=== PATIENT | male | born 1965 | race Caucasian/White ===

== ENCOUNTER 2020-07-21 06:29 | Day surgery (SDC) | payer BC ==
[2020-07-21] MEDS ORDERED: Midazolam 1 MG/ML 2 ML SDV IV ONE (06:30)
[2020-07-21] MEDS ORDERED: Propofol 200 MG/20 ML SDV IV ONE (06:30)
[2020-07-21] MEDS ORDERED: Sodium Chloride 0.9% 10 ML Syringe FLUSH PRN (06:45)
[2020-07-21] MEDS ORDERED: Lactated Ringers 1,000 ML IV SCH (06:45)
--- NOTE | 2020-07-21 08:30 | PCM.OPNOTE ---
- General Post-Op/Procedure Note Date of Surgery/Procedure: 07/21/20 Operative Procedure(s): c scope with cold loop cold forceps biopsy Findings: descending colon polyp Pre Op Diagnosis: screening Post-Op Diagnosis: descending colon polyp Anesthesia Technique: MAC Primary Surgeon: Wilfredo Burns Anesthesia Provider: Cara Navarro Pathology: descending colon polyp Complications: None Condition: Good Free Text/Narrative:: see dictation
--- NOTE | 2020-07-22 10:19 | OR ---
DATE OF OPERATION: 07/21/2020 SURGEON: Wilfredo Burns MD PROCEDURE PERFORMED: Colonoscopy with cold loop and cold forceps biopsy. PREOPERATIVE DIAGNOSIS: Colon cancer screening. POSTOPERATIVE DIAGNOSIS: Descending colon polyp. INDICATIONS FOR PROCEDURE: This is a 54-year-old white male who presents for his initial screening colonoscopy. He was offered and accepted the same. DESCRIPTION OF OPERATION: After an excellent IV sedation was administered, digital rectal exam was performed. No marked abnormality was noted. Flexible colonoscope was inserted and advanced to the cecum. The prep was excellent. The following findings were noted. Ascending colon unremarkable. Transverse colon unremarkable. Descending colon, proximal descending colon, approximately an 8 mm polyp. This was biopsied with the cold loop with the majority being retrieved, but we did use the cold forceps to biopsy the base to ensure that we completely obliterated the lesion and all the tissue was submitted for pathologic examination. Remainder of the descending colon was unremarkable. Sigmoid and rectum unremarkable. The patient tolerated the procedure well. Note that the scope did make it to the cecum and the cecum was identified by the usual anatomic markers. /[id number] /MODL
== END 2020-07-21 09:20 | disposition home or self-care (01) ==
LOC: FB.SDS 06:29
PROVIDERS: ATTEND Surgery
DX: Z12.11 Encounter for screening for malignant neoplasm of colon (principal); K63.5 Polyp of colon; K13.0 Diseases of lips; J45.909 Unspecified asthma, uncomplicated
CPT/HCPCS: 00812-QZ; 88305; J2250; J2704; J7120